=== PATIENT | male | born 1940 ===

== ENCOUNTER 2018-09-14 16:36 | Emergency (ER) | payer MEDICARE ==
[~2018-09-14] VITALS: Ht 172.7 cm; Wt 113.4 kg
[~2018-09-14 16:36] MED LIST: BP MED; ERYT.5TO OD; ESCI5; FISH1000 PO; HYDCHL25; Norco 10-325 T1 EACH PO; POTA8 PO; QUIN5
[2018-09-14 18:12] LABS: BASOPHILS ABSOLUTE AUTO 0.03 K/mm3 (0.00-0.23); BASOPHILS PERCENT AUTO 0 % (0-2); EOSINOPHILS ABSOLUTE AUTO 0.11 K/mm3 (0.00-0.68); EOSINOPHILS PERCENT AUTO 1 % (0-6); Hematocrit 43.1 % (37.0-53.0); Hemoglobin 14.7 g/dL (13.5-17.5); IMMATURE GRAN ABSOLUTE AUTO 0.05 K/mm3 (0.00-0.10); IMMATURE GRAN PERCENT AUTO 0 % (0-1); LYMPHOCYTES ABSOLUTE AUTO 0.64 K/mm3 (0.84-5.20); LYMPHOCYTES PERCENT AUTO 6 % (21-46); MONOCYTES PERCENT AUTO 5 % (4-13); Mean Corpuscular HGB 32.7 pg (26.0-34.0); Mean Corpuscular HGB Conc 34.1 g/dL (31.5-36.5); Mean Corpuscular Volume 96 fL (80-100); Mean Platelet Volume 10.8 fL (9.1-12.4); NEUTROPHILS ABSOLUTE AUTO 9.86 K/mm3 (1.96-9.15); NEUTROPHILS PERCENT AUTO 87 % (41-73); Platelet Count 153 K/mm3 (150-400); RDW Coefficient Variation 12.7 % (11.7-14.2); RDW Standard Deviation 45.2 fL (35.1-46.3); White Blood Cell Count 11.29 K/mm3 (4.00-11.30)
[2018-09-14 18:39] LABS: Alanine Aminotransfer (ALT/SGP 32 U/L (12-78); Albumin, Blood 3.1 g/dL (3.4-5.0); Albumin/Globulin Ratio 0.8 (0.8-1.8); Alk Phos 145 U/L (50-136); Anion Gap 9 mmol/L (6-16); Aspartate Aminotrans (AST/SGOT 22 U/L (12-37); Bilirubin, Total 0.7 mg/dL (0.1-1.0); Blood Urea Nitrogen 19 mg/dL (8-24); Bun/Creatinine Ratio 24.3 (12.0-20.0); CO2, Blood 21 mmol/L (21-32); Calcium, Blood 9.1 mg/dL (8.5-10.1); Chloride, Blood 105 mmol/L (98-108); Creatinine, Blood 0.78 mg/dL (0.60-1.20); Globulin, Blood 3.9 g/dL (2.2-4.0); Glomerular Filtration Rate >60 (60-); Glucose, Blood 96 mg/dL (70-99); Potassium, Blood 3.6 mmol/L (3.5-5.5); Sodium, Blood 135 mmol/L (136-145)
[2018-09-14 23:47] LABS: Source, Urine Clean Catch
[2018-09-14 23:49] LABS: Blood, Urine 1+ (Neg); Glucose Qualitative, Urine Neg (Neg); Ketones, Urine 1+ (Neg); Leukocyte Esterase, Urine 1+ (Neg); Nitrite, Urine Neg (Neg); Protein, Urine 2+ (Neg); Urobilinogen, Urine 1+ (Normal)
[2018-09-14 23:55] LABS: Appearance, Urine Clear (Clear); Bilirubin, Urine 1+ (Neg); Color, Urine Amber (P-Yellow)
[2018-09-14 23:56] LABS: Bacteria Many /hpf; Mucus Heavy (0-Heavy); Red Blood Cells, Urine 0-2 /hpf (0-2); Squamous Epithelial Cells Not Seen /hpf (Few)
== END 2018-09-15 01:10 | disposition home or self-care (01) ==
LOC: ER 16:36
PROVIDERS: Emergency Medicine
DX: R53.1 Weakness (principal); M25.561 Pain in right knee; M25.562 Pain in left knee; G89.29 Other chronic pain; I10 Essential (primary) hypertension
CPT/HCPCS: 36415; 80053; 81001; 84484; 85025; 86850; 86900; 86901; 87086; 93005; 93010; 96374; 99284-25; J1885

== ENCOUNTER 2018-09-18 12:41 | Emergency (ER) | payer MEDICARE ==
[~2018-09-18] VITALS: Ht 172.7 cm; Wt 111.1 kg
[2018-09-18 13:13] LABS: BASOPHILS ABSOLUTE AUTO 0.03 K/mm3 (0.00-0.23); BASOPHILS PERCENT AUTO 0 % (0-2); EOSINOPHILS ABSOLUTE AUTO 0.21 K/mm3 (0.00-0.68); EOSINOPHILS PERCENT AUTO 2 % (0-6); Hematocrit 38.7 % (37.0-53.0); Hemoglobin 13.2 g/dL (13.5-17.5); Mean Corpuscular HGB 32.1 pg (26.0-34.0); Mean Corpuscular HGB Conc 34.1 g/dL (31.5-36.5); Mean Corpuscular Volume 94 fL (80-100); Mean Platelet Volume 11.4 fL (9.1-12.4); Platelet Count 178 K/mm3 (150-400); RDW Coefficient Variation 12.7 % (11.7-14.2); RDW Standard Deviation 43.7 fL (35.1-46.3); Red Blood Cell Count 4.11 M/mm3 (4.30-5.90)
[2018-09-18 13:20] LABS: IMMATURE GRAN ABSOLUTE AUTO 0.08 K/mm3 (0.00-0.10); IMMATURE GRAN PERCENT AUTO 1 % (0-1); LYMPHOCYTES ABSOLUTE AUTO 0.73 K/mm3 (0.84-5.20); LYMPHOCYTES PERCENT AUTO 8 % (21-46); MONOCYTES ABSOLUTE AUTO 0.42 K/mm3 (0.16-1.47); MONOCYTES PERCENT AUTO 5 % (4-13); NEUTROPHILS ABSOLUTE AUTO 7.63 K/mm3 (1.96-9.15); NEUTROPHILS PERCENT AUTO 84 % (41-73)
[2018-09-18 13:25] LABS: Alanine Aminotransfer (ALT/SGP 33 U/L (12-78); Albumin, Blood 2.3 g/dL (3.4-5.0); Albumin/Globulin Ratio 0.6 (0.8-1.8); Alk Phos 111 U/L (50-136); Anion Gap 11 mmol/L (6-16); Aspartate Aminotrans (AST/SGOT 24 U/L (12-37); Bilirubin, Total 0.6 mg/dL (0.1-1.0); Blood Urea Nitrogen 19 mg/dL (8-24); Bun/Creatinine Ratio 26.9 (12.0-20.0); CO2, Blood 22 mmol/L (21-32); Calcium, Blood 8.6 mg/dL (8.5-10.1); Chloride, Blood 105 mmol/L (98-108); Creatinine, Blood 0.71 mg/dL (0.60-1.20); Globulin, Blood 3.8 g/dL (2.2-4.0); Glomerular Filtration Rate >60 (60-); Glucose, Blood 92 mg/dL (70-99); Potassium, Blood 3.2 mmol/L (3.5-5.5); Sodium, Blood 138 mmol/L (136-145); Total Protein, Blood 6.1 g/dL (6.4-8.2); Troponin I 0.017 ng/mL (0.000-0.040)
[2018-09-18 14:37] LABS: Source, Urine Clean Catch
[2018-09-18 14:45] LABS: Bilirubin, Urine Neg (Neg); Blood, Urine 4+ (Neg); Glucose Qualitative, Urine Neg (Neg); Ketones, Urine 2+ (Neg); Leukocyte Esterase, Urine 1+ (Neg); Nitrite, Urine Neg (Neg); Protein, Urine 1+ (Neg); Specific Gravity, Urine 1.015 (1.003-1.022); Urobilinogen, Urine NORM (Normal)
[2018-09-18 14:52] LABS: Appearance, Urine Clear (Clear); Color, Urine Yellow (P-Yellow)
[2018-09-18 14:53] LABS: Red Blood Cells, Urine 25-50 /hpf (0-2)
[2018-09-18 14:54] LABS: Bacteria Few /hpf; Squamous Epithelial Cells Few /hpf (Few)
== END 2018-09-18 17:18 | disposition home or self-care (01) ==
LOC: ER 12:41
PROVIDERS: Emergency Medicine
DX: R53.1 Weakness (principal); R00.2 Palpitations; I10 Essential (primary) hypertension
CPT/HCPCS: 36415; 80053; 81001; 83880; 84134; 84484; 85025; 87086; 93005; 93010; 96360; 99285-25; J7120

== ENCOUNTER 2018-09-20 07:16 | Emergency (ER) | payer MEDICARE ==
[~2018-09-20] VITALS: Ht 172.7 cm; Wt 111.1 kg
[2018-09-20 07:54] LABS: Source, Urine Clean Catch
[2018-09-20 07:59] LABS: Bilirubin, Urine Neg (Neg); Blood, Urine 1+ (Neg); Glucose Qualitative, Urine Neg (Neg); Ketones, Urine 2+ (Neg); Leukocyte Esterase, Urine Neg (Neg); Nitrite, Urine Neg (Neg); Protein, Urine 1+ (Neg); Specific Gravity, Urine 1.015 (1.003-1.022); Urobilinogen, Urine NORM (Normal)
[2018-09-20 08:08] LABS: Appearance, Urine Clear (Clear); Color, Urine Yellow (P-Yellow)
[2018-09-20 08:10] LABS: Bacteria Not Seen /hpf; Red Blood Cells, Urine 0-2 /hpf (0-2); Squamous Epithelial Cells Few /hpf (Few); White Blood Cells, Urine Not Seen /hpf (0-5)
[2018-09-20 08:20] LABS: Calcium, Ionized (POC) 1.14 mmol/L (1.10-1.46); Chloride (POC) 104 mmol/L (98-108); Creatinine (POC) 0.6 mg/dL (0.8-1.3); Glucose (ISTAT POC) 96 mg/dL (70-99); Hemoglobin (POC) 11.2 g/dL (13.5-17.5); Potassium (POC) 3.1 mmol/L (3.5-5.5); Sodium (POC) 139 mmol/L (135-148); Total CO2 (POC) 23 mmol/L (21-32)
[2018-09-20 08:50] LABS: Ethanol (Alcohol), Blood, Med <3 mg/dL; Troponin I 0.029 ng/mL (0.000-0.040)
== END 2018-09-20 11:52 | disposition home or self-care (01) ==
LOC: ER 07:16
PROVIDERS: Emergency Medicine
DX: E87.6 Hypokalemia (principal); R53.1 Weakness; I10 Essential (primary) hypertension; R73.03 Prediabetes; F32.9 Major depressive disorder, single episode, unspecified
CPT/HCPCS: 36415; 72080; 80047; 81001; 83735; 84443; 84484; 85014; 99285-25; G0480

== ENCOUNTER 2019-03-18 07:16 | Emergency (ER) | payer MEDICARE ==
[~2019-03-18] VITALS: Ht 175.3 cm; Wt 102.1 kg
[2019-03-18] MEDS ORDERED: Loratadine10 MG PO (08:28)
[2019-03-18] MEDS ORDERED: ATOR10 PO (08:28)
[2019-03-18] MEDS ORDERED: Zanaflex2 M1 PO (08:28)
[2019-03-18] MEDS ORDERED: OMEG1CAP30 PO (08:28)
[2019-03-18] MEDS ORDERED: BUPR150ER PO (08:28)
[2019-03-18] MEDS ORDERED: Aspirin325 MG PO (08:28)
[2019-03-18] MEDS ORDERED: ACCURETIC PO (08:28)
[2019-03-18] MEDS ORDERED: Norco 7.5-3251 EACH PO ×2 (08:28→09:35)
[2019-03-18] MEDS ORDERED: TAMSULOSIN HCL0.4 MG PO (08:28)
[2019-03-18] MEDS ORDERED: Wal-Phed30 MG PO (08:28)
[2019-03-18] MEDS ORDERED: LAMISIL AT12 GM TOP (08:28)
[2019-03-18] MEDS ORDERED: MOMENI INH (08:28)
[2019-03-18] MEDS ORDERED: PRAV20 PO (08:28)
[2019-03-18] MEDS ORDERED: FISH OIL + D31 EACH PO (08:28)
[2019-03-18] MEDS ORDERED: Flonase 0.05% N16 GM (08:28)
[2019-03-18] MEDS ORDERED: POTASSIUM GLUC500 MG PO (08:28)
[2019-03-18] MEDS ORDERED: ESCI10 PO (08:28)
[2019-03-18] MEDS ORDERED: Robaxin500 MG PO (09:35)
== END 2019-03-18 10:42 | disposition home or self-care (01) ==
LOC: ER 07:16
DX: G89.29 Other chronic pain (principal); M54.5 Low back pain; I10 Essential (primary) hypertension; F32.9 Major depressive disorder, single episode, unspecified; C61 Malignant neoplasm of prostate
CPT/HCPCS: 72100; 96374; 96375; 99283-25; J1885; J2405; J3010